=== PATIENT | female | born 1985 | race African-American/Black ===

== ENCOUNTER 2018-04-26 19:43 | Emergency (ER) | payer SELFPAY ==
[~2018-04-26] VITALS: Ht 162.6 cm; Wt 91.0 kg
[2018-04-26 19:59] VITALS: BP 205/114
== END 2018-04-26 20:33 | disposition left against medical advice (07) ==
LOC: EDBD 19:43 → ER 19:43
DX: R41.82 Altered mental status, unspecified (principal); R51 Headache; Z53.21 Procedure and treatment not carried out due to patient leaving prior to being seen by health care provider